=== PATIENT | female | born 1985 | race Caucasian/White ===

== ENCOUNTER 2017-02-09 09:41 | Day surgery (SDC) | payer BC, OTHER ==
[2017-02-09] VITALS (8 sets, daily range): BP systolic 91–103; BP diastolic 51–74; PULSE 66–88; RESP 13–25; Ht 157.5 cm; Wt 59.6 kg
[~2017-02-09] VITALS: Ht 157.5 cm; Wt 59.6 kg
[~2017-02-09 09:41] MED LIST: CEFAZOLIN 2 GM/50 ML (PMX) 50 ML IVPB SCH; NO MEDS; SOD CHLORIDE 0.9% 1,000 ML IV SCH
[2017-02-09] MEDS ORDERED: OMEP40CA6 PO (10:16)
[2017-02-09] MEDS ORDERED: BUPIVACAINE 0.25% (MPF) 30 ML INJ ONE (12:50)
[2017-02-09] MEDS ORDERED: ONDANSETRON 4 MG INJ IV PRN (13:00)
[2017-02-09] MEDS ORDERED: OXYCODONE/ACETAMINOPHEN (5/325) TAB PO PRN (13:00)
[2017-02-09] MEDS ORDERED: FENTAnyl 50 MCG/ML VIAL IV PRN (13:00)
[2017-02-09] MEDS ORDERED: PROCHLORPERAZINE 10 MG INJ IV PRN (13:00)
[2017-02-09] MEDS ORDERED: MEPERIDINE 25 MG INJ IV PRN (13:00)
[2017-02-09] MEDS ORDERED: HYDROmorphONE (0.2 MG/ML) 10ML SYG IV PRN ×3 (13:00)
[2017-02-09] MEDS ORDERED: DIPHENHYDRAMINE 50 MG INJ IV PRN (13:00)
[2017-02-09] MEDS ORDERED: SUCCINYLCHOLINE CHLORIDE 100 MG/5 ML SYG IV ONE (13:08)
[2017-02-09] MEDS ORDERED: MIDAZOLAM 1 MG/ML 2 ML INJ ONE (13:08)
[2017-02-09] MEDS ORDERED: PROPOFOL 20 ML ONE ×3 (13:08→13:53)
[2017-02-09] MEDS ORDERED: FENTAnyl 50 MCG/ML VIAL ONE (13:08)
[2017-02-09] MEDS ORDERED: LIDOCAINE 2% (SDV) 5 ML INJ ONE (13:08)
[2017-02-09] MEDS ORDERED: ROCURONIUM 50 MG INJ ONE (13:08)
[2017-02-09] MEDS ORDERED: DEXAMETHASONE 4 MG/ML 1 ML INJ ONE (13:19)
[2017-02-09] MEDS ORDERED: ONDANSETRON 4 MG INJ ONE (13:19)
[2017-02-09] MEDS ORDERED: PHENYLephrine (100 MCG/ML) 5ML SYG ONE (13:21)
[2017-02-09] MEDS ORDERED: CEFAZOLIN 1 GM INJ ONE (13:25)
[2017-02-09] MEDS ORDERED: HYDROmorphONE 2 MG/ML SYG ONE (13:26)
[2017-02-09] MEDS ORDERED: KETOROLAC 30 MG INJ ONE (13:53)
--- NOTE | 2017-02-09 13:56 | OPR ---
Date/Time of Note Date/Time of Note DATE: 02/09/17 TIME: 13:53 Operative Report Procedure Date: Feb 09, 2017 Preoperative Diagnosis symptomatic gallstones Postoperative Diagnosis same Operation/Procedure Performed 1. laparoscopic cholecystectomy 2. therapeutic subcutaneous injection of local anesthesia Surgeon see signature line [employer] Kenneth Castillo Anesthesia Type: general Estimated Blood Loss: 0 - 10 ml's Transfusion none Specimen gallbladder Grafts/Implants none Complications none Pt Condition Post Procedure: stable Indications This is a 31-year-old female with symptoms under gallstones. She requests surgical excision of her gallbladder. Risks alternatives benefits and percent were discussed with the patient. Patient expresses understanding and consents to the operation. Procedure Description Patient taken to the OR and prepped and draped in usual sterile fashion. Surgical timeout was performed. IV antibiotics given. Infraumbilical transverse incision is made with a 15 blade. Dissection cautery was carried onto the fascia. The fascia was grasped with Jorge's and divided with curved Anderson scissors. 0 Vicryl U stitch was placed into the fascia. Blueness on trocar is introduced. Pneumoperitoneum is established. Midepigastric 12 mm optical trocar was placed under direct visualization. Right upper quadrant upper flank 5 mm optical trochars were placed under direct visualization. Upon initial inspection there is adhesions to the gallbladder which were taken down bluntly. The gallbladder was retracted in the lateral and our direction. Cautery was used to mobilize the cystic duct carefully the cystic duct and cystic artery were identified the critical view was established. The cystic duct and cystic artery were divided using a 35 mm echelon vascular stapler due to thickened tissues. Additional clips were applied for reinforcement. The gallbladder was taken off the gallbladder bed. There is good hemostasis. The gallbladder was retrieved using Endo Catch bag. Ports removed under direct visualization. 0 Vicryl U stitch was tied down. Skin was closed using skin rolando. Therapeutic subcutaneous local anesthesia was injected throughout the port sites. Dry dressings were applied. Sylvia AHUMADA Feb 09, 2017 13:56
[2017-02-09] MEDS ORDERED: HYDROCODONE/APAP (5/325) TAB PO ONE (14:00)
== END 2017-02-09 16:20 | disposition home or self-care (01) ==
LOC: SDS 09:41
PROVIDERS: ATTEND Surgery
DX: D13.5 Benign neoplasm of extrahepatic bile ducts (principal)
CPT/HCPCS: 47562; 84703; 88304; J0690; J1100; J1170; J1885; J2250; J2370; J2405; J3010; Z7512; Z7610